=== PATIENT | female | born 1945 | race Two or more races ===

== ENCOUNTER 2023-01-14 14:19 | Emergency (ER) | payer OTHER ==
[~2023-01-14] VITALS: Ht 172.7 cm; Wt 88.5 kg
[2023-01-14] MEDS ORDERED: AMLODIPINE-OLM1 EAC2 PO (14:36)
[2023-01-14] MEDS ORDERED: TELMISARTAN40 MG PO (14:37)
[2023-01-14] MEDS ORDERED: IBANDRONATE SO150 MG PO (14:37)
== END 2023-01-14 23:14 | disposition home or self-care (01) ==
LOC: ER 14:19
DX: S89.81XA Other specified injuries of right lower leg, initial encounter (principal); S79.811A Other specified injuries of right hip, initial encounter; W19.XXXA Unspecified fall, initial encounter; Y93.89 Activity, other specified; Y92.89 Other specified places as the place of occurrence of the external cause; Y99.8 Other external cause status